=== PATIENT | female | born 1975 | race Caucasian/White ===

== ENCOUNTER 2018-09-23 05:46 | Emergency (ER) | payer MEDICARE ==
[~2018-09-23] VITALS: Ht 167.6 cm; Wt 73.0 kg
[~2018-09-23 05:46] MED LIST: ATOM10CA; BUPR1FIL; TRAZ-251
[2018-09-23 06:05] VITALS: BP 109/74
== END 2018-09-23 06:55 | disposition left against medical advice (07) ==
LOC: ER 05:46
DX: Z53.21 Procedure and treatment not carried out due to patient leaving prior to being seen by health care provider (principal)

== ENCOUNTER 2018-09-23 12:06 | Emergency (ER) | payer MEDICARE ==
[~2018-09-23] VITALS: Ht 167.6 cm; Wt 88.0 kg
[2018-09-23] MEDS ORDERED: SODIUM CHLORIDE 0.9% 1,000 ML IV ONE (13:03)
[2018-09-23] MEDS ORDERED: IBUPROFEN 600MG TABLET PO STA (13:03)
[2018-09-23 13:32] LABS: BASOPHILS % 0.8 % (0.0-2.0); EOSINOPHILS % 4.8 % (0.0-5.0); HEMATOCRIT. 37.1 % (36.0-48.0); HEMOGLOBIN. 12.9 g/dL (12.0-16.0); LYMPHOCYTES % 17.7 % (20.0-50.0); MEAN CORPUSCULAR HEMOGLOBIN 31.5 pg (28.0-32.0); MEAN CORPUSCULAR VOLUME 90.7 fL (81.0-99.0); MEAN PLATELET VOLUME 7.4 fl (7.4-10.4); MONOCYTES % 6.7 % (2.0-8.0); PLATELET 279 x1000/uL (130-400); RED BLOOD CELL COUNT 4.08 mill/uL (4.2-5.4); RED CELL DISTRIBUTION WIDTH 13.4 % (11.6-14.6)
[2018-09-23 13:34] LABS: CHLORIDE 109 mEq/L (98-107)
[2018-09-23 13:51] LABS: HCG SCREEN NEGATIVE
[2018-09-23 15:30] VITALS: BP 125/80
[2018-09-23 16:00] LABS: CLARITY URINE CLEAR (CLEAR); COLOR URINE YELLOW (YELLOW); KETONES URINE NEGATIVE (NEGATIVE); LEUKOCYTE ESTERASE URINE NEGATIVE (NEGATIVE); NITRITE URINE NEGATIVE (NEGATIVE); OCCULT BLOOD URINE NEGATIVE (NEGATIVE); PROTEIN URINE NEGATIVE (NEGATIVE); SPECIFIC GRAVITY URINE 1.017 (1.005-1.030); UROBILINOGEN URINE 0.2 E.U./dL (0.2-1.0)
== END 2018-09-23 18:38 | disposition left against medical advice (07) ==
LOC: ER 12:06
DX: R07.89 Other chest pain (principal); M79.601 Pain in right arm; R61 Generalized hyperhidrosis; E87.6 Hypokalemia; C50.919 Malignant neoplasm of unspecified site of unspecified female breast; Z92.21 Personal history of antineoplastic chemotherapy; Z90.10 Acquired absence of unspecified breast and nipple; F17.210 Nicotine dependence, cigarettes, uncomplicated; F12.90 Cannabis use, unspecified, uncomplicated
CPT/HCPCS: 36415; 71045; 80053; 81003; 83605; 83690; 84484; 84703; 85025; 85379; 93005; 99284; J7030

== ENCOUNTER 2018-11-04 08:37 | Inpatient (IN) | payer MEDICARE ==
[~2018-11-04] VITALS: Ht 167.6 cm; Wt 100.7 kg
[~2018-11-04 08:37] MED LIST changes: -ATOM10CA; +ATOM10CA PO; -BUPR1FIL; +BUPR1FIL SL; -TRAZ-251; +TRAZ-251 PO
[2018-11-04] MEDS ORDERED: MORPHINE SULFATE 4 MG/ML CPJ (NOT FOR IM USE) IV STA (09:17)
[2018-11-04 10:10] LABS: CHLORIDE 102 mEq/L (98-107)
[2018-11-04 10:12] LABS: HCG SCREEN NEGATIVE
[2018-11-04 10:19] LABS: BASOPHILS % 0.4 % (0.0-2.0); EOSINOPHILS % 5.9 % (0.0-5.0); HEMOGLOBIN. 13.6 g/dL (12.0-16.0); LYMPHOCYTES % 19.3 % (20.0-50.0); MEAN CORPUSCULAR HEMOGLOBIN 31.8 pg (28.0-32.0); MEAN CORPUSCULAR VOLUME 91.4 fL (81.0-99.0); MEAN PLATELET VOLUME 7.9 fl (7.4-10.4); MONOCYTES % 5.7 % (2.0-8.0); NEUTROPHILS % 68.7 % (40.0-76.0); PLATELET 261 x1000/uL (130-400); RED BLOOD CELL COUNT 4.27 mill/uL (4.2-5.4)
[2018-11-04] MEDS ORDERED: IOHEXOL-350 100 ML BOTTLE ONE (12:00)
[2018-11-04] MEDS ORDERED: OXYCODONE HCL/ACETAMINOPHEN 5/325MG TABLET PO ONE (12:15)
[2018-11-04] MEDS ORDERED: ENOXAPARIN 80MG/0.8ML SYR SUBCUT ONE (12:30)
[2018-11-04] MEDS ORDERED: LORAZEPAM 2MG/ML CPJ IV PRN (13:30)
[2018-11-04] MEDS ORDERED: ONDANSETRON HCL 4MG/2ML INJ IV PRN (13:30)
[2018-11-04] MEDS ORDERED: IPRATROPIUM/ALBUTEROL 0.5-3(2.5)MG/3ML NEB NEB PRN (13:30)
[2018-11-04] MEDS ORDERED: DIPHENHYDRAMINE 50MG/ML VIAL IV PRN (13:30)
[2018-11-04] MEDS ORDERED: DOCUSATE SODIUM 100MG CAPSULE PO PRN (13:30)
[2018-11-04] MEDS ORDERED: GUAIFENESIN 200MG/10ML SUGAR FREE UDC PO PRN (13:30)
[2018-11-04] MEDS ORDERED: HYDROCODONE/ACETAMINOPHEN 5/325MG TABLET PO PRN (13:30)
[2018-11-04] MEDS ORDERED: MAGNESIUM/ALUMINUM HYDROXIDE/SIMETHICONE 30ML UDC PO PRN (13:30)
[2018-11-04] MEDS ORDERED: CLONIDINE 0.1MG TABLET PO PRN (13:30)
[2018-11-04 14:52] LABS: CLARITY URINE CLEAR (CLEAR); COLOR URINE YELLOW (YELLOW); KETONES URINE NEGATIVE (NEGATIVE); LEUKOCYTE ESTERASE URINE NEGATIVE (NEGATIVE); NITRITE URINE NEGATIVE (NEGATIVE); OCCULT BLOOD URINE NEGATIVE (NEGATIVE); PH URINE 7.5 (4.5-8.0); PROTEIN URINE NEGATIVE (NEGATIVE); SPECIFIC GRAVITY URINE 1.051 (1.005-1.030); UROBILINOGEN URINE 0.2 E.U./dL (0.2-1.0)
[2018-11-04 15:20] LABS: *AMPHETAMINES SCREEN URINE NEGATIVE (NEGATIVE); *BARBITURATES SCREEN URINE NEGATIVE (NEGATIVE); *BENZODIAZEPINES SCREEN URINE NEGATIVE (NEGATIVE); *COCAINE SCREEN URINE NEGATIVE (NEGATIVE)
[2018-11-04 15:21] LABS: CANNABINOID URINE SCREEN NEGATIVE (NEGATIVE); METHADONE URINE SCREEN NEGATIVE (NEGATIVE); PHENCYCLIDINE URINE SCREEN NEGATIVE (NEGATIVE)
[2018-11-04 15:21] LABS: CHLORIDE 100 mEq/L (98-107)
[2018-11-04 15:24] LABS: OPIATES URINE SCREEN PRESUMTIVE POSITIVE (NEGATIVE)
[2018-11-04] MEDS: MORPHINE SULFATE 2 MG/ML CPJ (NOT FOR IM USE) IV PRN (16:33)
[2018-11-04 20:27] VITALS: BP 115/66
[2018-11-04] MEDS ORDERED: NA PHOS,M-B/NA PHOS,DI-BA ENEMA 118ML PR PRN (21:00)
[2018-11-04] MEDS ORDERED: LEVO25TA PO (21:05)
[2018-11-04] MEDS: ACETAMINOPHEN 325MG TABLET PO PRN (22:39)
[2018-11-05] VITALS: BP 91/50
[2018-11-05] MEDS ORDERED: ENOXAPARIN 80MG/0.8ML SYR SUBCUT SCH
[2018-11-05 00:06] LABS: PROTHROMBIN TIME 10.1 sec (9.6-11.0)
[2018-11-05] MEDS: IPRATROPIUM/ALBUTEROL 0.5-3(2.5)MG/3ML NEB HHN SCH ×4 (01:32→20:23)
[2018-11-05] MEDS: MORPHINE SULFATE 2 MG/ML CPJ (NOT FOR IM USE) IV PRN ×5 (01:32→19:54)
[2018-11-05 05:49] VITALS: BP 105/72
[2018-11-05 06:13] LABS: BASOPHILS % 0.7 % (0.0-2.0); EOSINOPHILS % 6.7 % (0.0-5.0); HEMATOCRIT. 39.3 % (36.0-48.0); HEMOGLOBIN. 13.3 g/dL (12.0-16.0); LYMPHOCYTES % 29.1 % (20.0-50.0); MEAN CORPUSCULAR HEMOGLOBIN 31.1 pg (28.0-32.0); MEAN CORPUSCULAR VOLUME 91.5 fL (81.0-99.0); MEAN PLATELET VOLUME 7.7 fl (7.4-10.4); MONOCYTES % 7.5 % (2.0-8.0); PLATELET 244 x1000/uL (130-400); RED BLOOD CELL COUNT 4.29 mill/uL (4.2-5.4); RED CELL DISTRIBUTION WIDTH 14.1 % (11.6-14.6)
[2018-11-05 06:25] LABS: CHLORIDE 102 mEq/L (98-107)
[2018-11-05 06:43] LABS: HDL CHOLESTEROL 33 mg/dL (40-59)
[2018-11-05 06:44] LABS: T4 FREE 1.04 ng/dL (0.76-1.46)
[2018-11-05 06:45] LABS: LDL CHOLESTEROL 118 mg/dL (5-100)
[2018-11-05 08:00] VITALS: BP 95/71
[2018-11-05] MEDS: ACETAMINOPHEN 325MG TABLET PO PRN (09:53)
[2018-11-05 12:00] VITALS: BP 101/65
[2018-11-05] MEDS: ENOXAPARIN 100MG/ML SYR SUBCUT SCH (12:52)
[2018-11-05 16:00] VITALS: BP 103/71
[2018-11-05 20:00] VITALS: BP 122/77
[2018-11-06] VITALS: BP 105/73
[2018-11-06] MEDS: MORPHINE SULFATE 2 MG/ML CPJ (NOT FOR IM USE) IV PRN ×5 (00:21→21:22)
[2018-11-06] MEDS: ENOXAPARIN 100MG/ML SYR SUBCUT SCH (00:21)
[2018-11-06] MEDS: IPRATROPIUM/ALBUTEROL 0.5-3(2.5)MG/3ML NEB HHN SCH ×4 (01:29→21:53)
[2018-11-06 05:02] VITALS: BP 107/80
[2018-11-06 06:33] LABS: BASOPHILS % 0.6 % (0.0-2.0); EOSINOPHILS % 6.5 % (0.0-5.0); HEMOGLOBIN. 13.2 g/dL (12.0-16.0); LYMPHOCYTES % 23.7 % (20.0-50.0); MEAN CORPUSCULAR HEMOGLOBIN 31.5 pg (28.0-32.0); MEAN CORPUSCULAR VOLUME 92.7 fL (81.0-99.0); MEAN PLATELET VOLUME 8.2 fl (7.4-10.4); MONOCYTES % 7.3 % (2.0-8.0); NEUTROPHILS % 61.9 % (40.0-76.0); PLATELET 241 x1000/uL (130-400); RED CELL DISTRIBUTION WIDTH 14.4 % (11.6-14.6)
[2018-11-06 07:41] LABS: CHLORIDE 100 mEq/L (98-107)
[2018-11-06 08:00] VITALS: BP 126/87
[2018-11-06 12:00] VITALS: BP 113/72
[2018-11-06 16:00] VITALS: BP 108/76
[2018-11-06] MEDS: LEVOTHYROXINE SODIUM 25MCG TABLET PO SCH (17:21)
[2018-11-06] MEDS: RIVAROXABAN 15 MG TABLET PO SCH (17:21)
[2018-11-06 20:00] VITALS: BP 116/77
[2018-11-07] VITALS: BP 98/65
[2018-11-07] MEDS: IPRATROPIUM/ALBUTEROL 0.5-3(2.5)MG/3ML NEB HHN SCH ×3 (00:13→14:31)
[2018-11-07] MEDS: MORPHINE SULFATE 2 MG/ML CPJ (NOT FOR IM USE) IV PRN ×4 (01:39→13:27)
[2018-11-07 04:00] VITALS: BP 102/70
[2018-11-07 07:02] LABS: BASOPHILS % 0.7 % (0.0-2.0); EOSINOPHILS % 7.6 % (0.0-5.0); HEMOGLOBIN. 14.1 g/dL (12.0-16.0); LYMPHOCYTES % 22.4 % (20.0-50.0); MEAN CORPUSCULAR HEMOGLOBIN 31.1 pg (28.0-32.0); MEAN CORPUSCULAR VOLUME 92.2 fL (81.0-99.0); MEAN PLATELET VOLUME 7.8 fl (7.4-10.4); MONOCYTES % 7.3 % (2.0-8.0); PLATELET 252 x1000/uL (130-400); RED BLOOD CELL COUNT 4.55 mill/uL (4.2-5.4)
[2018-11-07 07:52] LABS: CHLORIDE 104 mEq/L (98-107)
[2018-11-07 08:00] VITALS: BP 97/70
[2018-11-07] MEDS: LEVOTHYROXINE SODIUM 25MCG TABLET PO SCH (09:35)
[2018-11-07] MEDS: RIVAROXABAN 15 MG TABLET PO SCH ×2 (09:35→16:18)
[2018-11-07 12:00] VITALS: BP 113/79
[2018-11-07 13:38] VITALS: BP 113/70
[2018-11-28] MEDS ORDERED: RIVAROXABAN 20 MG TABLET PO SCH (17:00)
== END 2018-11-07 17:04 | disposition home or self-care (01) | DRG 175 ==
LOC: ER 08:37 → 7WST 12:27 → ENRESERV 19:25 → 7WST 20:43
PROVIDERS: ADMIT Internal Medicine; ATTEND Internal Medicine
DX: I26.99 Other pulmonary embolism without acute cor pulmonale (principal); J96.00 Acute respiratory failure, unspecified whether with hypoxia or hypercapnia; D68.59 Other primary thrombophilia; E03.9 Hypothyroidism, unspecified; F17.210 Nicotine dependence, cigarettes, uncomplicated; E78.5 Hyperlipidemia, unspecified; F31.9 Bipolar disorder, unspecified; I10 Essential (primary) hypertension; F41.9 Anxiety disorder, unspecified; I48.0 Paroxysmal atrial fibrillation; R74.0 Nonspecific elevation of levels of transaminase and lactic acid dehydrogenase [LDH]; Z85.3 Personal history of malignant neoplasm of breast; Z86.711 Personal history of pulmonary embolism; Z86.718 Personal history of other venous thrombosis and embolism; Z90.13 Acquired absence of bilateral breasts and nipples; Z92.21 Personal history of antineoplastic chemotherapy; Z92.3 Personal history of irradiation; J45.909 Unspecified asthma, uncomplicated; Z82.49 Family history of ischemic heart disease and other diseases of the circulatory system; Z83.3 Family history of diabetes mellitus; Z90.49 Acquired absence of other specified parts of digestive tract; Z88.0 Allergy status to penicillin; Z79.899 Other long term (current) drug therapy
CPT/HCPCS: 36415; 71045; 71275; 80048; 80061; 80076; 80305; 81003; 83036; 83735; 83880; 84439; 84443; 84484; 84703; 93005; 93306; 93970; 94640; 99285; J1650; J2060; J2270; J7620; Q9967

== ENCOUNTER 2018-11-09 07:28 | Inpatient (IN) | payer MEDICARE ==
[~2018-11-09] VITALS: Ht 167.6 cm; Wt 104.8 kg
[~2018-11-09 07:28] MED LIST changes: +LEVO25TA PO
[2018-11-09 09:03] LABS: CHLORIDE 101 mEq/L (98-107)
[2018-11-09 09:04] LABS: INR 1.2; PARTIAL THROMBOPLASTIN TIME 39.8 sec (23.4-31.0); PROTHROMBIN TIME 12.2 sec (9.6-11.0)
[2018-11-09 09:05] LABS: BASOPHILS % 0.8 % (0.0-2.0); EOSINOPHILS % 5.3 % (0.0-5.0); HEMATOCRIT. 40.7 % (36.0-48.0); HEMOGLOBIN. 13.8 g/dL (12.0-16.0); LYMPHOCYTES % 16.9 % (20.0-50.0); MEAN CORPUSCULAR HEMOGLOBIN 30.8 pg (28.0-32.0); MEAN CORPUSCULAR VOLUME 90.7 fL (81.0-99.0); MONOCYTES % 5.1 % (2.0-8.0); NEUTROPHILS % 71.9 % (40.0-76.0); PLATELET 255 x1000/uL (130-400); RED BLOOD CELL COUNT 4.49 mill/uL (4.2-5.4); RED CELL DISTRIBUTION WIDTH 14.1 % (11.6-14.6)
[2018-11-09] MEDS ORDERED: MORPHINE SULFATE 4 MG/ML CPJ (NOT FOR IM USE) IV ONE (10:00)
[2018-11-09] MEDS ORDERED: ENOXAPARIN 100MG/ML SYR SUBCUT ONE (10:00)
[2018-11-09 12:00] VITALS: BP 113/86
[2018-11-09] MEDS ORDERED: MORPHINE SULFATE 4 MG/ML CPJ (NOT FOR IM USE) IV NR (12:45)
[2018-11-09 13:00] VITALS: BP 113/86
[2018-11-09] MEDS ORDERED: MAGNESIUM/ALUMINUM HYDROXIDE/SIMETHICONE 30ML UDC PO PRN (13:45)
[2018-11-09] MEDS ORDERED: ACETAMINOPHEN 325MG TABLET PO PRN (13:45)
[2018-11-09] MEDS ORDERED: ONDANSETRON HCL 4MG/2ML INJ IV PRN (13:45)
[2018-11-09] MEDS ORDERED: DIPHENHYDRAMINE 50MG/ML VIAL IV PRN (13:45)
[2018-11-09] MEDS ORDERED: IPRATROPIUM/ALBUTEROL 0.5-3(2.5)MG/3ML NEB HHN PRN (13:45)
[2018-11-09] MEDS ORDERED: CLONIDINE 0.1MG TABLET PO PRN (13:45)
[2018-11-09] MEDS ORDERED: GUAIFENESIN 200MG/10ML SUGAR FREE UDC PO PRN (13:45)
[2018-11-09] MEDS ORDERED: MAGNESIUM HYDROXIDE 400MG/5ML 30ML UDC PO PRN (13:45)
[2018-11-09] MEDS ORDERED: ESCI20TA36 PO (13:58)
[2018-11-09] MEDS ORDERED: HYDR50CA PO (13:58)
[2018-11-09] MEDS ORDERED: BUPR300T52 MT (13:58)
[2018-11-09] MEDS ORDERED: XAR15 MT (13:58)
[2018-11-09] MEDS ORDERED: ARIP10TA16 PO (13:58)
[2018-11-09] MEDS ORDERED: LEVO112T7 PO (13:58)
[2018-11-09] MEDS ORDERED: ATOM100C PO (13:58)
[2018-11-09] MEDS ORDERED: NAPR-681 MT (13:58)
[2018-11-09] MEDS ORDERED: CYCL5TAB PO (13:58)
[2018-11-09] MEDS ORDERED: PNEUMOCOCCAL 23-VAL P-SAC VAC 0.5 ML IM ONE (16:00)
[2018-11-09] MEDS: MORPHINE SULFATE 2 MG/ML CPJ (NOT FOR IM USE) IV PRN (17:58)
[2018-11-09 20:00] VITALS: BP 104/57
[2018-11-09] MEDS: ENOXAPARIN 100MG/ML SYR SUBCUT SCH (20:51)
[2018-11-10 00:17] VITALS: BP 111/72
[2018-11-10] MEDS: MORPHINE SULFATE 2 MG/ML CPJ (NOT FOR IM USE) IV PRN ×3 (00:44→20:47)
[2018-11-10 04:00] VITALS: BP 101/43
[2018-11-10 08:00] VITALS: BP 106/71
[2018-11-10] MEDS: ENOXAPARIN 100MG/ML SYR SUBCUT SCH ×2 (09:26→20:46)
[2018-11-10 12:00] VITALS: BP 118/78
[2018-11-10] MEDS: HYDROCODONE/ACETAMINOPHEN 10/325MG TABLET PO PRN (13:02)
[2018-11-10] MEDS ORDERED: PNEUMOCOCCAL 23-VAL P-SAC VAC 0.5 ML IM ONE (15:00)
[2018-11-10 20:00] VITALS: BP 118/72
[2018-11-10] MEDS ORDERED: TRAZODONE HCL 50MG TABLET PO SCH (21:00)
[2018-11-11] VITALS: BP 126/76
[2018-11-11 04:00] VITALS: BP 120/62
[2018-11-11] MEDS: MORPHINE SULFATE 2 MG/ML CPJ (NOT FOR IM USE) IV PRN (06:21)
[2018-11-11] MEDS ORDERED: LEVOTHYROXINE SODIUM 112MCG TABLET PO SCH (07:40)
[2018-11-11 08:00] VITALS: BP 110/57
[2018-11-11] MEDS: ENOXAPARIN 100MG/ML SYR SUBCUT SCH (08:26)
[2018-11-11] MEDS ORDERED: BUPROPION HCL 150MG TABLET XL 24HR PO SCH (09:00)
[2018-11-11] MEDS: HYDROCODONE/ACETAMINOPHEN 10/325MG TABLET PO PRN (10:41)
[2018-11-11 12:58] VITALS: BP 113/61
== END 2018-11-11 14:53 | disposition home or self-care (01) | DRG 206 ==
LOC: ER 07:28 → EDBEDREQ 10:52 → ENRESERV 11:13 → EDBEDREQ 11:36 → 7WST 11:37
PROVIDERS: ADMIT Internal Medicine; ATTEND Internal Medicine
DX: M94.0 Chondrocostal junction syndrome [Tietze] (principal); D68.59 Other primary thrombophilia; F41.1 Generalized anxiety disorder; M54.9 Dorsalgia, unspecified; F31.9 Bipolar disorder, unspecified; I10 Essential (primary) hypertension; I48.0 Paroxysmal atrial fibrillation; J45.909 Unspecified asthma, uncomplicated; Z72.0 Tobacco use; F41.9 Anxiety disorder, unspecified; E03.9 Hypothyroidism, unspecified; Z85.3 Personal history of malignant neoplasm of breast; Z90.11 Acquired absence of right breast and nipple; Z88.0 Allergy status to penicillin; Z88.1 Allergy status to other antibiotic agents; Z86.711 Personal history of pulmonary embolism; Z86.718 Personal history of other venous thrombosis and embolism; Z92.21 Personal history of antineoplastic chemotherapy; Z92.3 Personal history of irradiation; Z82.49 Family history of ischemic heart disease and other diseases of the circulatory system; Z90.49 Acquired absence of other specified parts of digestive tract
CPT/HCPCS: 36415; 71045; 72070; 83880; 84484; 90732; 93005; 96374; 99285; J1650; J2270

== ENCOUNTER 2019-01-09 10:46 | Emergency (ER) | payer MEDICARE ==
[~2019-01-09] VITALS: Ht 167.6 cm; Wt 100.0 kg
[~2019-01-09 10:46] MED LIST changes: +ARIP10TA16 PO; +ATOM100C PO; -ATOM10CA PO; +BUPR300T52 MT; +CYCL5TAB PO; +ESCI20TA36 PO; +HYDR50CA PO; +LEVO112T7 PO; -LEVO25TA PO; +NAPR-681 MT; +XAR15 MT
[2019-01-09] MEDS ORDERED: ASPIRIN 81MG TABLET PO ONE (11:30)
[2019-01-09 11:53] LABS: BASOPHILS % 0.6 % (0.0-2.0); EOSINOPHILS % 3.8 % (0.0-5.0); HEMATOCRIT. 40.8 % (36.0-48.0); HEMOGLOBIN. 13.9 g/dL (12.0-16.0); LYMPHOCYTES % 15.1 % (20.0-50.0); MEAN CORPUSCULAR HEMOGLOBIN 31.4 pg (28.0-32.0); MEAN CORPUSCULAR VOLUME 92.2 fL (81.0-99.0); MEAN PLATELET VOLUME 7.4 fl (7.4-10.4); MONOCYTES % 5.7 % (2.0-8.0); NEUTROPHILS % 74.8 % (40.0-76.0); PLATELET 276 x1000/uL (130-400); RED BLOOD CELL COUNT 4.42 mill/uL (4.2-5.4); RED CELL DISTRIBUTION WIDTH 14.5 % (11.6-14.6)
[2019-01-09 11:58] LABS: CHLORIDE 102 mEq/L (98-107); HCG SCREEN NEGATIVE
[2019-01-09 12:51] LABS: CLARITY URINE CLEAR (CLEAR); COLOR URINE YELLOW (YELLOW); KETONES URINE NEGATIVE (NEGATIVE); LEUKOCYTE ESTERASE URINE NEGATIVE (NEGATIVE); NITRITE URINE NEGATIVE (NEGATIVE); OCCULT BLOOD URINE NEGATIVE (NEGATIVE); PROTEIN URINE NEGATIVE (NEGATIVE); SPECIFIC GRAVITY URINE 1.003 (1.005-1.030); UROBILINOGEN URINE 0.2 E.U./dL (0.2-1.0)
[2019-01-09] MEDS ORDERED: ACETAMINOPHEN WITH CODEINE 300/30MG TABLET PO ONE (13:15)
[2019-01-09] MEDS ORDERED: RIVAROXABAN 10 MG TABLET PO SCH (14:15)
[2019-01-09] MEDS ORDERED: ENOXAPARIN 100MG/ML SYR SUBCUT ONE (14:15)
[2019-01-09] MEDS ORDERED: IOHEXOL-350 100 ML BOTTLE ONE (14:47)
[2019-01-09 14:48] VITALS: BP 129/81
== END 2019-01-09 14:52 | disposition home or self-care (01) ==
LOC: ER 10:53
DX: R07.89 Other chest pain (principal); I48.91 Unspecified atrial fibrillation; J45.909 Unspecified asthma, uncomplicated; F31.9 Bipolar disorder, unspecified; I10 Essential (primary) hypertension; Z88.0 Allergy status to penicillin; Z79.01 Long term (current) use of anticoagulants; Z86.718 Personal history of other venous thrombosis and embolism; Z90.10 Acquired absence of unspecified breast and nipple; Z85.9 Personal history of malignant neoplasm, unspecified; Z86.711 Personal history of pulmonary embolism
CPT/HCPCS: 36415; 70450; 71045; 71275; 80053; 81003; 83880; 84484; 84703; 85025; 93005; 96372; 99284; J1650; Q9967

== ENCOUNTER 2019-01-20 10:24 | Emergency (ER) | payer MEDICARE ==
[~2019-01-20] VITALS: Ht 167.6 cm; Wt 104.0 kg
[2019-01-20 10:44] VITALS: BP 142/85
== END 2019-01-20 12:34 | disposition left against medical advice (07) ==
LOC: ER 10:24
DX: Z53.21 Procedure and treatment not carried out due to patient leaving prior to being seen by health care provider (principal)

== ENCOUNTER 2019-03-11 16:12 | Emergency (ER) | payer MEDICAID, MEDICARE ==
[~2019-03-11] VITALS: Ht 167.6 cm; Wt 82.0 kg
[~2019-03-11 16:12] MED LIST changes: -ESCI20TA36 PO; +ESCI20TA43 PO
[2019-03-11] MEDS ORDERED: ACETAMINOPHEN WITH CODEINE 300/30MG TABLET PO STA (16:41)
[2019-03-11 17:28] LABS: BASOPHILS % 0.9 % (0.0-2.0); CHLORIDE 96 mEq/L (98-107); EOSINOPHILS % 4.6 % (0.0-5.0); HEMATOCRIT. 44.2 % (36.0-48.0); HEMOGLOBIN. 15.1 g/dL (12.0-16.0); LYMPHOCYTES % 17.5 % (20.0-50.0); MEAN CORPUSCULAR HEMOGLOBIN 30.8 pg (28.0-32.0); MEAN CORPUSCULAR VOLUME 90.5 fL (81.0-99.0); MEAN PLATELET VOLUME 7.9 fl (7.4-10.4); MONOCYTES % 6.2 % (2.0-8.0); NEUTROPHILS % 70.8 % (40.0-76.0); PLATELET 277 x1000/uL (130-400); RED BLOOD CELL COUNT 4.89 mill/uL (4.2-5.4); RED CELL DISTRIBUTION WIDTH 14.3 % (11.6-14.6)
[2019-03-11 18:19] LABS: CLARITY URINE CLEAR (CLEAR); COLOR URINE YELLOW (YELLOW); KETONES URINE NEGATIVE (NEGATIVE); LEUKOCYTE ESTERASE URINE NEGATIVE (NEGATIVE); NITRITE URINE NEGATIVE (NEGATIVE); OCCULT BLOOD URINE NEGATIVE (NEGATIVE); PROTEIN URINE NEGATIVE (NEGATIVE); SPECIFIC GRAVITY URINE 1.035 (1.005-1.030); UROBILINOGEN URINE 0.2 E.U./dL (0.2-1.0)
[2019-03-11] MEDS ORDERED: KETOROLAC 60MG/2ML VIAL IM ONE (18:30)
[2019-03-11] MEDS ORDERED: INSULIN REGULAR (HUMULIN R) 300UNITS/3ML SUBCUT ONE (19:00)
[2019-03-11 19:40] VITALS: BP 111/81
== END 2019-03-11 20:01 | disposition home or self-care (01) ==
LOC: ER 16:12
DX: R10.11 Right upper quadrant pain (principal); R11.0 Nausea; I48.91 Unspecified atrial fibrillation; I10 Essential (primary) hypertension; J45.909 Unspecified asthma, uncomplicated; Z90.10 Acquired absence of unspecified breast and nipple; Z87.19 Personal history of other diseases of the digestive system; Z79.899 Other long term (current) drug therapy; Z88.0 Allergy status to penicillin
CPT/HCPCS: 36415; 76705; 80053; 81003; 82962; 83690; 85025; 96372; 99284; J1885

== ENCOUNTER 2019-03-24 07:25 | Emergency (ER) | payer MEDICARE, MEDICAID ==
[~2019-03-24] VITALS: Ht 167.6 cm; Wt 100.0 kg
[2019-03-24] MEDS ORDERED: ACETAMINOPHEN 325MG TABLET PO ONE (09:00)
[2019-03-24 09:08] LABS: BASOPHILS % 0.7 % (0.0-2.0); HEMOGLOBIN. 14.8 g/dL (12.0-16.0); LYMPHOCYTES % 14.6 % (20.0-50.0); MEAN CORPUSCULAR HEMOGLOBIN 30.8 pg (28.0-32.0); MEAN CORPUSCULAR VOLUME 91.5 fL (81.0-99.0); MEAN PLATELET VOLUME 8.2 fl (7.4-10.4); MONOCYTES % 6.4 % (2.0-8.0); NEUTROPHILS % 74.3 % (40.0-76.0); PLATELET 254 x1000/uL (130-400); RED BLOOD CELL COUNT 4.81 mill/uL (4.2-5.4); RED CELL DISTRIBUTION WIDTH 14.2 % (11.6-14.6)
[2019-03-24 09:12] LABS: CHLORIDE 100 mEq/L (98-107)
[2019-03-24 09:20] LABS: HCG SCREEN NEGATIVE
[2019-03-24 09:43] VITALS: BP 125/68
== END 2019-03-24 09:45 | disposition home or self-care (01) ==
LOC: ER 07:25
DX: R10.84 Generalized abdominal pain (principal); I48.91 Unspecified atrial fibrillation; F31.9 Bipolar disorder, unspecified; I10 Essential (primary) hypertension; Z85.9 Personal history of malignant neoplasm, unspecified; Z90.10 Acquired absence of unspecified breast and nipple; Z86.718 Personal history of other venous thrombosis and embolism; Z86.711 Personal history of pulmonary embolism; Z88.0 Allergy status to penicillin; Z79.01 Long term (current) use of anticoagulants; Z88.8 Allergy status to other drugs, medicaments and biological substances
CPT/HCPCS: 36415; 80053; 81025; 84703; 85025; 99283

== ENCOUNTER 2019-04-07 07:41 | Emergency (ER) | payer MEDICARE, MEDICAID ==
[~2019-04-07] VITALS: Ht 167.6 cm; Wt 100.0 kg
[2019-04-07 08:21] VITALS: BP 119/91
== END 2019-04-07 09:25 | disposition left against medical advice (07) ==
LOC: ER 07:41
DX: Z53.21 Procedure and treatment not carried out due to patient leaving prior to being seen by health care provider (principal)

== ENCOUNTER 2021-10-04 12:53 | Emergency (ER) | payer MEDICAID, MEDICARE, OTHER ==
[~2021-10-04] VITALS: Ht 167.6 cm; Wt 77.0 kg
[~2021-10-04 12:53] MED LIST changes: -ARIP10TA16 PO; +ARIP10TA56 PO; +ATOM10CA PO; +CLIN-116 PO; +ESCI20TA37 PO; -ESCI20TA43 PO; +ESCI5TAB PO; +IBUP-2028 PO; +ONDA4TAB5 MT; +SITA25TA3 PO; +T3 PO; +[UNRECOGNIZED DRUG - OTHER]
[2021-10-04 13:02] VITALS: BP 116/81
== END 2021-10-04 16:39 | disposition left against medical advice (07) ==
LOC: ER 12:53
DX: Z53.21 Procedure and treatment not carried out due to patient leaving prior to being seen by health care provider (principal)

== ENCOUNTER 2022-07-27 18:28 | Emergency (ER) | payer OTHER ==
[~2022-07-27] VITALS: Ht 165.1 cm; Wt 100.0 kg
[2022-07-27 18:32] VITALS: BP 135/87
== END 2022-07-27 20:30 | disposition left against medical advice (07) ==
LOC: ER 18:28
DX: Z53.21 Procedure and treatment not carried out due to patient leaving prior to being seen by health care provider (principal)
CPT/HCPCS: 99281

== ENCOUNTER 2022-11-27 17:08 | Emergency (ER) | payer OTHER ==
[~2022-11-27] VITALS: Ht 165.1 cm; Wt 95.3 kg
[2022-11-27 17:38] VITALS: BP 135/81; O2SAT 96
[2022-11-27 20:45] VITALS: PULSE 90; RESP 16; TEMP 98.5
== END 2022-11-27 20:46 | disposition home or self-care (01) ==
LOC: ER 17:08
DX: R68.84 Jaw pain (principal); E11.9 Type 2 diabetes mellitus without complications; Z85.9 Personal history of malignant neoplasm, unspecified; Z90.49 Acquired absence of other specified parts of digestive tract; Z79.899 Other long term (current) drug therapy
CPT/HCPCS: 99281

== ENCOUNTER 2023-04-18 10:44 | Emergency (ER) | payer MEDICAID, OTHER ==
[~2023-04-18] VITALS: Ht 167.6 cm; Wt 94.0 kg
[2023-04-18 10:47] VITALS: O2SAT 97
[2023-04-18] MEDS: KETOROLAC 60MG/2ML VIAL IM STA (11:52)
[2023-04-18] MEDS: HYDROCODONE/ACETAMINOPHEN 5/325MG TABLET PO STA (11:52)
[2023-04-18] MEDS ORDERED: HYDR-4001 MT (12:02)
[2023-04-18] MEDS ORDERED: NAPR-681 PO (12:02)
[2023-04-18 12:33] VITALS: BP 141/91; PULSE 79; RESP 13; TEMP 98.2
== END 2023-04-18 12:39 | disposition home or self-care (01) ==
LOC: ER 10:44
DX: S20.212A Contusion of left front wall of thorax, initial encounter (principal); E11.9 Type 2 diabetes mellitus without complications; Z90.49 Acquired absence of other specified parts of digestive tract; Z85.9 Personal history of malignant neoplasm, unspecified; Z79.899 Other long term (current) drug therapy; Z88.0 Allergy status to penicillin; Z91.81 History of falling; W18.39XA Other fall on same level, initial encounter; Y93.89 Activity, other specified; Y92.89 Other specified places as the place of occurrence of the external cause; Y99.8 Other external cause status
CPT/HCPCS: 81025; 71101; 96372; 99283; J1885; Z7610